=== PATIENT | female | born 2000 | race Caucasian/White ===

== ENCOUNTER → 2021-02-19 15:59 | Outpatient (CLI) | payer OTHER, SELFPAY ==
[2021-02-19 16:20] LABS: Absolute Lymphocyte Count 1.66 X10^3/uL (0.83-4.51); Absolute Neutrophil Count 8.1 X10^3/uL (2.0-7.7); Basophil# 0.03 X10^3/uL; Basophil% 0.3 % (0-1); Eosinophil# 0.04 X10^3/uL; Eosinophils% 0.4 % (0-5); Hematocrit 36.4 % (37-47); Hemoglobin 13.1 g/dL (12.0-15.0); Lymphocyte # 1.66 X10^3/ul (0.83-4.51); Lymphocyte % 15.8 % (19-41); Mean Corpuscular Hgb 31.3 pg (27.0-32.0); Mean Corpuscular Volume 86.9 fL (81-99); Mean Platelet Vol. 11.6 fl (6.2-12.0); Monocyte# 0.61 X10^3/uL; Monocyte% 5.8 % (0-10); NRBC Flagged by Analyzer 0 % (0-5); Neutrophil # 8.13 X10^3/uL (2.7-7.7); Neutrophil % 77.3 % (47-70); Platelet Count 232 K/mm3 (150-450); RBC Distribution Width CV 11.4 % (11.6-14.6); Red Blood Count 4.19 M/mm3 (4.2-5.4); White Blood Count 10.5 K/mm3 (4.4-11.0)
[2021-02-20 09:13] LABS: HIV - WCH Non-Reactive (Nonreactive); Hepatitis B Surface Antigen Non-Reactive (Nonreactive); Hepatitis C Antibody Non-Reactive (Nonreactive); Syphilis Antibodies Non-reactive
[2021-02-22 07:07] LABS: Chlamydia By Nucleic Acid AMP Negative (Negative)
[2021-02-22 13:41] LABS: Gonococcus By Nucleic Acid AMP Negative (Negative)
[2021-02-24 08:15] LABS: HPV Reflexed? NOT INDICATED
== END ==
PROVIDERS: Referring Provider Obstetrics & Gynecology; Visit Provider Obstetrics & Gynecology
DX: Z34.90 Encounter for supervision of normal pregnancy, unspecified, unspecified trimester (principal); Z12.4 Encounter for screening for malignant neoplasm of cervix
CPT/HCPCS: 36415; 85025; 86703; 86762; 86780; 86803; 86850; 86900; 86901; 87340; 87491; 87591; 88175; G0145

== ENCOUNTER 2021-04-18 09:30 | Outpatient (CLI) | payer OTHER, SELFPAY ==
[2021-04-18 09:54] LABS: Amphetamine Urine VISTA NEGATIVE (<1000 ng/mL); Barbiturate Urine VISTA NEGATIVE (< 200 ng/mL); Benzodiazepine Urine VISTA NEGATIVE (< 200 ng/mL); Cocaine Urine VISTA NEGATIVE (< 300 ng/mL); Ecstacy Urine VISTA NEGATIVE (< 500 ng/mL); Methadone Urine VISTA NEGATIVE (< 300 ng/mL); PCP Urine VISTA NEGATIVE (< 25 ng/mL); THC Urine VISTA NEGATIVE (< 50 ng/mL); Vista UDS pH Range 8
== END 2021-04-18 23:59 | disposition short-term general hospital (02) ==
LOC: LABSPEC 09:32
PROVIDERS: Referring Provider Nurse Practitioner Women's Health; Visit Provider Nurse Practitioner Women's Health
DX: Z34.01 Encounter for supervision of normal first pregnancy, first trimester (principal)
CPT/HCPCS: 80307; 87086

== ENCOUNTER 2021-07-11 07:38 | Outpatient (CLI) | payer OTHER, SELFPAY ==
[2021-07-11 08:05] LABS: Absolute Lymphocyte Count 1.19 X10^3/uL (0.83-4.51); Absolute Neutrophil Count 9.2 X10^3/uL (2.0-7.7); Basophil# 0.05 X10^3/uL; Basophil% 0.4 % (0-1); Eosinophil# 0.12 X10^3/uL; Eosinophils% 1.1 % (0-5); Lymphocyte # 1.19 X10^3/ul (0.83-4.51); Lymphocyte % 10.4 % (19-41); Mean Corp Hgb Conc 34.3 g/dL (32-36); Mean Corpuscular Hgb 32.3 pg (27.0-32.0); Mean Corpuscular Volume 94.1 fL (81-99); Mean Platelet Vol. 10.5 fl (6.2-12.0); Monocyte# 0.75 X10^3/uL; Monocyte% 6.6 % (0-10); NRBC Flagged by Analyzer 0 % (0-5); Neutrophil # 9.18 X10^3/uL (2.7-7.7); Neutrophil % 80.4 % (47-70); Platelet Count 225 K/mm3 (150-450); RBC Distribution Width CV 11.7 % (11.6-14.6); RBC Distribution Width SD 40.1 fl (35.1-43.9); Red Blood Count 3.72 M/mm3 (4.2-5.4); White Blood Count 11.4 K/mm3 (4.4-11.0)
[2021-07-11 08:31] LABS: Glucose Challenge Gest 1H 50g 113 mg/dL (70-140)
== END 2021-07-11 23:59 | disposition home or self-care (01) ==
PROVIDERS: Referring Provider Obstetrics & Gynecology; Visit Provider Obstetrics & Gynecology
DX: Z34.90 Encounter for supervision of normal pregnancy, unspecified, unspecified trimester (principal); Z3A.20 20 weeks gestation of pregnancy
CPT/HCPCS: 36415; 82950; 85025

== ENCOUNTER → 2021-09-04 | Outpatient (CLI) | payer OTHER, SELFPAY | END | disposition home or self-care (01) | LOC: LABSPEC 09-07 04:57 | PROVIDERS: Visit Provider Obstetrics & Gynecology | DX: Z34.01 Encounter for supervision of normal first pregnancy, first trimester (principal) | CPT/HCPCS: 87077; 87081; 87186 ==

== ENCOUNTER 2021-09-18 06:35 | Inpatient (IN) | payer OTHER, SELFPAY ==
[2021-09-18] VITALS (100 sets, daily range): BP systolic 106–163; BP diastolic 52–86; PULSE 72–151; TEMP 36.6–37.7; O2SAT 97–100; BMI 31.8
[2021-09-18] MEDS: Lactated Ringers 1,000 ML 999 ML IV ×2 (04:35→21:23)
[2021-09-18] MEDS: fentaNYL 100 MCG/2 ML Ampul 50 MCG IV (04:50)
--- NOTE | 2021-09-18 06:41 | HP.PCM.OB_ITS ---
HPI - General General Date of Admission: 09/18/21 HPI Narrative SARITA ENAMORADO, is a 21 F who presents IAL made cervical change. she also had 2 subtle late decels on the monitor no vb no lof good fm. Maternal Data Information AYAZ Calculator Estimated Delivery Date Method Current WG Current Estimate 10/01/21 LMP (Certain) 38w 1d PFSH PFSH Home Medications docosahexaenoic acid 200 mg capsule 1 mg PO DAILY 06/13/21 [History Last Taken Unknown] Allergy/AdvReac Type Severity Reaction Status Date / Time Penicillins Allergy Unknown Other Verified 09/04/21 08:57 Family History Grandmother Diabetes Heart disease Hypertension Grandfather Diabetes Heart disease Hypertension Lymphoma Social History household members: spouse housing: house current occupational status: employed current occupation: [employer] pets and animals: Yes Smoking Status: Never smoker second hand exposure: Yes alcohol intake: current alcohol intake frequency: holidays/special occasions only substance use type: does not use seatbelt use: always do you feel safe at home: Yes additional social history: - Emmanuel ([place]) History 1 Elective abortions Hx Para Spontaneous abortions Hx # Term Pregnancies Ectopic pregnancies Hx # Pregnancies Multiple births # of living children Visit Details Expected Delivery Route/Plan Labor Preferences- CB/BF classes: done labor support person: Emmanuel labor intervention preferences: none pain management options preferred: epidural cut cord/dad catch: maybe : yes PP control planned: discussed discussed possible routes of delivery and associated risks: discussed possible delivery modalities and possible indications for each including R/B/A of , VAVD, and CS. questions answered. special requests: Plans Covid status: counseled regarding risk of covid in vs vaccination and declined vaccination Flu vaccine: declined. Tdap vaccine: given Rhogam: na LARC form signed: yes movement and labor precautions reviewed. Problem list reviewed and updated with the most current plan of care details and appropriate orders placed. Relevant counseling for the gestational age provided. Continue routine care and follow up unless otherwise noted in visit not es/problem list details OB Flowsheet Initial Weight: 139 lb Date -?-?-?-?-?-?-?-?-?-?-?-?- EGA Weight BP Urine Prot -?-?-?-?-?-?-?-?-?-?-?-?- Glucose FHR FuHt Pres Dilation -?-?-?-?-?-?-?-?-?-?-?-?- Effaced St Visit Note 02/19/21 -?-?-?-?-?-?-?-?-?-?-?-?- 8w 0d 139 lb 4 oz (+4 oz) 124/80 -?--?-?-?-?-?-?-?-?-?-?-?- 155 -?-?-?-?-?-?-?-?-?-?-?-?- SM- no vb crampi ng SM- CRL cons with LMP 03/19/21 -?-?-?-?-?-?-?-?-?-?-?-?- 12w 0d 142 lb (+3 lb) 106/62 -?-?-?-?-?-?-?-?-?-?-?-?- 170 -?-?-?-?-?-?-?-?-?-?-?-?- SM- no vb crampi ng doing well 04/18/21 -?-?-?-?-?-?-?-?-?-?-?-?- 16w 2d 144 lb 6 oz (+5 lb 6 oz) 130/80 Negative -?-?-?-?-?-?-?-?-?-?-?-?- Negative 153 -?-?--?-?-?-?-?-?-?-?-?-?- MH-No VB, LOF. Nausea resolved. Anatomy US ordered. 05/16/21 -?-?-?-?-?-?-?-?-?-?-?-?- 20w 2d 149 lb 2 oz (+10 lb 2 oz) 120/80 Negative -?-?-?-?-?-?-?-?-?-?-?-?- Negative 145 -?-?-?-?-?-?-?-?-?-?-?-?- JV- no lof, vagi nal bleeding, + fm Anatomy scan done and report is pending. 06/13/21 -?-?-?-?-?-?-?-?-?-?-?-?- 24w 2d 159 lb (+20 lb) 122/70 Negative -?-?-?-?-?-?-?-?-?-?-?-?- Negative 145 -?-?-?-?-?-?-?-?-?-?-?-?- JV- nml anatomy, gct ordered. no complaints today 07/11/21 -?-?-?-?-?-?-?-?-?-?-?-?- 28w 2d 167 lb (+28 lb) 118/76 Negative -?-?-?-?-?-?-?-?-?-?-?-?- Negative 144 27 -?-?-?-?-?-?-?-?-?-?-?-?- MH-No VB, LOF. G ood FM. Normal 28wk labs today. Larc done. 07/25/21 -?-?-?-?-?-?-?-?-?-?-?-?- 30w 2d 173 lb (+34 lb) 120/82 Negative -?-?-?-?-?-?-?-?-?-?-?-?- Negative 145 30 -?-?-?-?-?-?-?-?-?-?-?-?- JV- no lof, vagi nal bleeding, or dec fm. no complaints. 08/08/21 -?-?-?-?-?-?-?-?-?-?-?-?- 32w 2d 176 lb 8 oz (+37 lb 8 oz) 120/80 Negative -?-?-?-?-?-?-?-?-?-?-?-?- Negative 137 32 -?-?-?-?-?-?-?-?-?-?-?-?- JV- no lof, vagi nal bleeding, or dec fm. tdap today. 08/20/21 -?-?-?-?-?-?-?-?-?-?-?-?- 34w 0d 181 lb (+42 lb) 122/86 Negative -?-?-?-?-?-?-?-?-?-?-?-?- Negative 130 34 -?-?-?-?-?-?-?-?-?-?-?-?- SM- no vb lof go od fm no regular ctx 09/04/21 -?-?-?-?-?-?-?-?-?-?-?-?- 36w 1d 187 lb (+48 lb) 114/82 Negative -?-?-?-?-?-?-?-?-?-?-?-?- Negative 140 36 Cephalic 0 -?-?-?-?-?-?-?-?-?-?-?-?- JV- bedside scan performed to confirm vtx. GBS collected. labor precautions discussed 09/14/21 -?-?-?-?-?-?-?-?-?-?-?-?- 37w 4d 188 lb (+49 lb) 120/66 Negative -?-?-?-?-?-?-?-?-?-?-?-?- Negative 150 36 Cephalic -?-?-?-?-?-?-?-?-?-?-?-?- JV-GBS pos, pt d eclines exam today. labor precautions discussed. 09/18/21 -?-?-?-?-?-?-?-?-?-?-?-?- 38w 1d 191 lb 3.2 oz (+52 lb 3.2 oz) 123/81 -?-?-?-?-?-?-?-?-?-?-?-?- -?-?-?-?-?-?-?-?-?-?-?-?- NST FHR Rate Baby A Baseline: 140 Variability:: Moderate Accelerations:: 15 x 15 Decelerations:: Late (two isolated) NST Reactive:: Yes FHR Category:: Category II Uterine Activity:: q3-5 ROS Constitutional Constitutional: Reports systems reviewed and no addt'l complaints, except as documented ENT HEENT: Reports systems reviewed and no addt'l complaints, except as documented Cardiovascular Cardiovascular: Reports systems reviewed and no addt'l complaints, except as documented Respiratory/Chest Respiratory/Chest: Reports systems reviewed and no addt'l complaints, except as documented Gastrointestinal Gastrointestinal: Reports systems reviewed and no addt'l complaints, except as documented and nausea; Denies abdominal pain Genitourinary Genitourinary: Reports systems reviewed and no addt'l complaints, except as documented, contractions Details: present and frequency (regular ) and movement Details: present Musculoskeletal Musculoskeletal: Reports systems reviewed and no addt'l complaints, except as documented Integumentary Integumentary: Reports as per HPI Neurologic Neurologic: Reports systems reviewed and no addt'l complaints, except as documented Endocrine Endocrinology: Reports systems reviewed and no addt'l complaints, except as documented Vital Signs Vital Signs Vital Signs: 09/18/21 03:32 09/18/21 03:37 09/18/21 03:38 Pulse Rate 104 H 109 H 103 H Blood Pressure 123/81 H BP Systolic 123 BP Diastolic 81 Pulse Ox 99 99 09/18/21 05:01 09/18/21 05:06 09/18/21 05:11 Pulse Rate 74 72 74 Blood Pressure BP Systolic BP Diastolic Pulse Ox 97 97 97 09/18/21 05:16 09/18/21 05:21 09/18/21 05:26 Pulse Rate 77 83 95 Blood Pressure BP Systolic BP Diastolic Pulse Ox 97 98 98 Weight Weight: 191 lb 3.2 oz Body Mass Index (BMI) 31.8 Physical Exam Const alert, oriented x3 and healthy appearing Constitutional Narrative: uncomfortable with contractions HEENT normocephalic and moist oral mucous membranes Head and Scalp: atraumatic Neck full ROM, no lymphadenopathy, supple and thyroid normal General: trachea midline Thyroid: thyroid normal Lymph Lymphatic: no lymphadenopathy noted Chest inspection of chest normal Resp normal respiratory effort Cardio regular rate GI normal to inspection, nondistended, normoactive bowel sounds, soft to palpation and non-tender Inspection: gravid external exam normal Bimanual Exam - Vag & Uterus: uterus non-tender Manual OB Exam: estimated gestational size appropriate, presentation cephalic, dilated, effaced and station Extremity normal to inspection General Extremity: Negative for edema Skin no rashes or lesions noted Neuro deep tendon reflexes 2+ bilaterally Motor Exam: strength 5/5 throughout and clonus absent Psych mental status grossly normal Labs Labs Labs: Blood Type A POSITIVE Antibody Screen NEGATIVE Hct 35.0 % (37-47) L Hgb 12.0 g/dL (12.0-15.0) Syphilis Total Ab Non-reactive Hep Bs Antigen Non-Reactive (Nonreactive) Chlamydia DNA (YANDEL) Negative (Negative) Neisseria gonorrhoeae DNA (YANDEL) Negative (Negative) HIV 1&2 Antibody Non-Reactive (Nonreactive) Glucose 1 Hr 50 gm 113 mg/dL (70-140) Assessment & Plan (1) GBS (group B Streptococcus carrier), +RV culture, currently : COMMENT: plan ancef in labor (2) : QUALIFIERS: Weeks of gestation: 37 weeks Qualified Code(s): Z3A.37 - 37 weeks gestation of COMMENT: declines genetic, ntd, and carrier screening. nl anatomy; (3) Supervision of normal : QUALIFIERS: Normal : normal first Trimester: first trimester Qualified Code(s): Z34.01 - Encounter for supervision of normal first , first trimester COMMENT: PRR AYAZ: 10/01/21 Girl (name secret) Spouse: Emmanuel. (4) Active labor at term: PLAN: Patient presents IAL, plan expectant management for , pitocin/AROM PRN if needed. Pain management: plans epidural. GBS positive plan IV ancef Management of any complications: none I have reviewed the [facility] and made any clinically relevant updates.
[2021-09-18] MEDS: LACTATED RINGERS 500 ML 999 ML IV (07:22)
[2021-09-18] MEDS: Cefazolin 2 GM in 0.9% Normal Saline 100 ML IV (07:34)
[2021-09-18 08:18] LABS: Absolute Neutrophil Count 11.7 X10^3/uL (2.0-7.7); Basophil# 0.07 X10^3/uL; Basophil% 0.5 % (0-1); Eosinophils% 0.7 % (0-5); Hematocrit 34.4 % (37-47); Hemoglobin 11.7 g/dL (12.0-15.0); Lymphocyte % 9.5 % (19-41); Mean Corpuscular Hgb 31.3 pg (27.0-32.0); Mean Platelet Vol. 10.9 fl (6.2-12.0); Monocyte# 1.04 X10^3/uL; NRBC Flagged by Analyzer 0 % (0-5); Neutrophil # 11.73 X10^3/uL (2.7-7.7); Neutrophil % 79.5 % (47-70); Platelet Count 251 K/mm3 (150-450); RBC Distribution Width CV 11.8 % (11.6-14.6); RBC Distribution Width SD 39.3 fl (35.1-43.9); Red Blood Count 3.74 M/mm3 (4.2-5.4); White Blood Count 14.8 K/mm3 (4.4-11.0)
[2021-09-18] MEDS: Lactated Ringers 1,000 ML 50 ML IV (08:24)
[2021-09-18] MEDS: fentaNYL-bupivacaine (epidural) 100 ML BAG EPIDURAL ×3 (10:23→18:56)
[2021-09-18] MEDS: Lactated Ringers 1,000 ML 200 ML IV (13:31)
[2021-09-18] MEDS: Cefazolin 1 GM/50 ML BAG IV (15:07)
[2021-09-18] MEDS: Oxytocin 30 units/NS 500 ml 30 UNITS/500 ML IV.SOLN IV (17:18)
[2021-09-18] MEDS: Ondansetron 4 MG/2 ML Vial IV (17:58)
[2021-09-18] MEDS: Oxytocin 30 units/NS 500 ml 30 UNITS/500 ML IV.SOLN 334 UNITS IV (19:37)
--- NOTE | 2021-09-18 20:09 | OP.PCM_ITS ---
Assessment & Plan (1) Supervision of normal : QUALIFIERS: Normal : normal first Trimester: first trimester Qualified Code(s): Z34.01 - Encounter for supervision of normal first , first trimester COMMENT: PRR AYAZ: 10/01/21 Girl (name secret) Spouse: Emmanuel. (2) : QUALIFIERS: Weeks of gestation: 37 weeks Qualified Code(s): Z3A.37 - 37 weeks gestation of COMMENT: declines genetic, ntd, and carrier screening. nl anatomy; (3) GBS (group B Streptococcus carrier), +RV culture, currently : COMMENT: plan ancef in labor (4) Active labor at term: (5) Vaginal delivery: COMMENT: SM 38 IAL girl [place] meconium Maternal Data Information AYAZ Calculator Estimated Delivery Date Method Current WG Current Estimate 10/01/21 LMP (Certain) 38w 1d Vaginal Delivery Operative Information Date of Procedure: 09/18/21 Pre-Operative Diagnosis: IAL Post-Operative Diagnosis: same Surgery / Procedure Performed: Spontaneous Vaginal Delivery Type of Anesthesia: Epidural Special Medications: none Estimated Blood Loss: 100 Fluids Replaced: crystalloid Findings Description of Procedure: Patient began pushing and delivered the head in the VIPUL presentation. The head was delivered atraumatically and a loose nuchal cord ?2 was identified and the delivered through without complication. The anterior and posterior shoulders delivered without complication followed by the rest of the infant and the was placed on the maternal abdomen. Delayed cord clamping was employed for approximately 60 seconds. Cord was clamped and cut and gentle traction was applied to the cord and the placenta delivered spontaneously immediately following it was noted to be intact with three-vessel cord. The perineum and vagina were inspected and noted to have no laceration. EBL was 100 cc. Patient and tolerated delivery well. Presentation: VIPUL Amniotic Membrane Rupture Type: Spontaneous Amniotic Fluid Description: Thick meconium Placental Delivery Description: Spontaneous Placenta Disposition: [facility] Cord Vessel Description: 3 Vessels Cord Entanglement: None Delayed Cord Clamping: Yes Post Vaginal Delivery Medications Given After Delivery: IV Pitocin Episiotomy Description: None Laceration: None Complication Complications: None Procedures Urinary/Genital [id number]: [id number] Vaginal Delivery [facility]
--- NOTE | 2021-09-18 20:14 | PCM.DC ---
Discharge Instructions Diet Discharge Diet: No restrictions Activity Discharge Activity: Return to Normal Activity, May Not Drive (while taking narcotic pain medications.) and May Shower May resume sexual activity in: 4-6 weeks Dressing / Incision Call your doctor if your incision/area has: Continuous Slow Oozing, Sudden Increased Bleeding, Increased Pain/ Swelling, Increased Redness and Foul Smelling Discharge Follow Up Care Please Follow Up With: Kathleen Castaneda MD When: Call [phone] to make an appointment with your doctor in 6 weeks. If you had elevated blood pressure or 4th degree laceration, you will need to be seen in 2 weeks. Test Results: Test results from this visit will be discussed in further detail at your follow-up appointment, if applicable. Discharge Plan Admission Admit Date/Time: 09/18/21 06:35 Attending Provider: Kathleen Castaneda Primary Care Provider: Cecile Cortes Discharge Orders/Prescriptions Prescriptions: No Action DHA 200 mg capsule 1 mg PO DAILY RF: 0 Referrals / Follow Up: Cecile Cortes PA [Primary Care Provider] - Disposition Disposition (needs filled in before D/C Order can be placed): Home, Self Care
[2021-09-19] VITALS (14 sets, daily range): BP systolic 99–120; BP diastolic 59–70; PULSE 84–162; RESP 14–18; TEMP 36.3–37.2; O2SAT 98–99
[2021-09-19] MEDS: Naproxen 500 MG Tablet PO ×2 (00:01→11:11)
[2021-09-19] MEDS: Acetaminophen 500 MG Tablet 1000 MG PO ×2 (06:54→16:26)
--- NOTE | 2021-09-19 07:18 | PN.OBGYN_ITS ---
Subjective Subjective Patient doing well without complaints. Tolerating PO. Ambulating and voiding without difficulty. feeding well. Denies chest pain, shortness of breath, calf pain/swelling, fevers, chills, lightheadedness. Objective Data Objective Data Vital Signs: Vital Signs Temp Pulse Resp BP Pulse Ox 98 F 94 18 111/62 99 09/19/21 03:45 09/19/21 03:48 09/19/21 03:45 09/19/21 03:48 09/19/21 00:04 Oxygen Delivery Method Room Air Weight: 191 lb 3.2 oz Body Mass Index (BMI) 31.8 Intake & Output: Intake and Output for Last 24 Hours 09/17/21 09/18/21 09/19/21 23:59 23:59 23:59 Intake Total 7267.8 / 7267.8 Output Total 3850 / 3850 1200 / 1200 Balance 3417.8 / 3417.8 -1200 / -1200 Lab / Micro Data Result Diagrams: 09/18/21 07:43 Labs: Laboratory Results - last 24 hr 09/18/21 04:35: Blood Type A POSITIVE, Antibody Screen NEGATIVE 09/18/21 07:43: WBC 14.8 H, RBC 3.74 L, Hgb 11.7 L, Hct 34.4 L, MCV 92.0, MCH 31.3, MCHC 34.0, RDW Std Deviation 39.3, RDW Coeff of Ashley 11.8, Plt Count 251, MPV 10.9, Immature Gran % (Auto) 2.800 H, Neut % (Auto) 79.5 H, Lymph % (Auto) 9.5 L, [place] % (Auto) 7.0, Eos % (Auto) 0.7, Baso % (Auto) 0.5, Absolute Neuts (auto) 11.7 H, Absolute Lymphs (auto) 1.40, Nucleated RBC % 0 Micro: Microbiology 09/18/21 07:15 Nasal Secretion SARS-CoV-2 Antigen (Rapid) - Final ROS Constitutional Constitutional: Reports systems reviewed and no addt'l complaints, except as documented Cardiovascular Cardiovascular: Reports systems reviewed and no addt'l complaints, except as documented Respiratory/Chest Respiratory/Chest: Reports systems reviewed and no addt'l complaints, except as documented Gastrointestinal Gastrointestinal: Reports systems reviewed and no addt'l complaints, except as documented Physical Exam Const alert, oriented x3 and no apparent distress HEENT Head and Scalp: atraumatic Resp normal respiratory effort GI soft to palpation and non-tender Bimanual Exam - Vag & Uterus: uterus non-tender Uterus Palpation: uterus fundus firm (below Umbilicus) Assessment & Plan (1) Vaginal delivery: COMMENT: SM 38 IAL girl Rodrigo meconium PLAN: Plan s/p PPD # 1 1. routine post delivery care 2. breast feeding- support given 3. rh positive 4. rubella immune
[2021-09-19] MEDS: Senna/Docusate Sodium 1 Tablet PO (19:50)
[2021-09-20 02:47] VITALS: BP 96/54; PULSE 86; RESP 18
[2021-09-20 02:48] VITALS: BP 92/54; PULSE 86
[2021-09-20 09:32] VITALS: BP 110/58; PULSE 100; PULSE 97; O2SAT 98
[2021-09-20 09:34] VITALS: BP 110/58; PULSE 100; RESP 16; TEMP 36.8; O2SAT 98
[2021-09-20] MEDS: Naproxen 500 MG Tablet PO (11:28)
[2021-09-20 13:00] VITALS: BP 98/63; PULSE 96; RESP 15; TEMP 36.2; O2SAT 99
--- NOTE | 2021-09-20 13:16 | PCM.PN.OB ---
Subjective Subjective Patient doing well without complaints. Tolerating PO. Ambulating and voiding without difficulty. feeding well. Denies chest pain, shortness of breath, calf pain/swelling, fevers, chills, lightheadedness. Objective Data Objective Data Vital Signs: Vital Signs Temp Pulse Resp BP Pulse Ox 97.1 F L 96 15 98/63 99 09/20/21 13:00 09/20/21 13:00 09/20/21 13:00 09/20/21 13:00 09/20/21 13:00 Oxygen Delivery Method Room Air Weight: 191 lb 3.2 oz Body Mass Index (BMI) 31.8 Intake & Output: Intake and Output for Last 24 Hours 09/18/21 09/19/21 09/20/21 23:59 23:59 23:59 Intake Total 7267.8 / 7267.8 Output Total 3850 / 3850 1200 / 1200 Balance 3417.8 / 3417.8 -1200 / -1200 Lab / Micro Data Result Diagrams: 09/18/21 07:43 Micro: Microbiology 09/18/21 07:15 Nasal Secretion SARS-CoV-2 Antigen (Rapid) - Final ROS Constitutional Constitutional: Reports systems reviewed and no addt'l complaints, except as documented Cardiovascular Cardiovascular: Reports systems reviewed and no addt'l complaints, except as documented Respiratory/Chest Respiratory/Chest: Reports systems reviewed and no addt'l complaints, except as documented Gastrointestinal Gastrointestinal: Reports systems reviewed and no addt'l complaints, except as documented Physical Exam Const alert, oriented x3 and no apparent distress HEENT Head and Scalp: atraumatic Resp normal respiratory effort GI soft to palpation and non-tender Bimanual Exam - Vag & Uterus: uterus non-tender Uterus Palpation: uterus fundus firm (below Umbilicus) Assessment & Plan (1) Vaginal delivery: COMMENT: SM 38 IAL girl Rodrigo meconium PLAN: Plan s/p PPD # 2 1. routine post delivery care 2. breast feeding- support given 3. rh positive 4. rubella immune
--- NOTE | 2021-09-20 16:03 | CASEMGMT ---
Social Work Brief Assessment Labor and Delivery Unit Patient Address: [address] [place] [address] [address] [place] [address] Phone number: [phone] Date of Referral: 09/18/2021 Time of Referral: 2311 Referred By: Dr. Bhakta Date of Intervention: 09/21/2019 Time of Intervention: 1344 Reason for Referral: Maternal anxiety Informant: Medical records, mother of baby (MOB) Madeline Pappas; father of baby (FOB) Emmanuel Pappas joined conversation midway through. History: JOHANNE is a 21-year-old female, to the FOB, with baby girl Rodrigo the first child for both parents. Rodrigo was born 09/18/2021, weighing 6 pounds 14 ounces, Apgars 8 and 9, 38 weeks gestation at . care started in the first trimester and regular thereafter. 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 FOB works as a account director. High school education, with no reported concerns regarding MOB's reading, writing, or learning comprehension. MOB reports sometimes will get anxious with new things, though has never needed medication or counseling. No reports of any thoughts of self-harm or harm to others. Denies any history of substance abuse issues. Drinks alcohol socially but not during . Drug screen on 04/18/2021 was negative. During private conversation, MOB denied any form of domestic or intimate partner violence. Assessment: Met with MOB in room, introducing to self and social work role. MOB initially alone and this fiction and nonfiction writer prose was able to address whether there are any topics of limits when the FOB returned. MOB denied. MOB also denied any domestic or intimate partner violence. FOB joined conversation midway through, and upon FOB's return to the room the FOB actively participated in conversation and provided input. MOB's overall demeanor was quiet and reserved, good eye contact, and answered questions appropriately; smiled at appropriate times. MOB and FOB reported to have necessary supplies to care for the infant and adequate support from family. FOB will be off of work for the remainder of this week and there will be family available to come and help out if needed after. No reported financial concerns, or ability to have basic needs met. MOB and FOB reports housing is adequate. MOB's brother has been living with the parents, but is signing paperwork today to get his own apartment. TORITO denies any safety concerns with her brother living in the home. Reviewed safe sleeping and shaken baby prevention, and both parents able to give appropriate responses. Reviewed mood and anxiety disorders, risk factors, and importance of seeking out help and support should symptoms arise. FOB was able to provide input on this topic, discussing that someone at work recently had a baby, and that person's had depression. FOB reported that the woman started medication, which helped. Additionally one other thing that helped this woman was being able to get out of the house and have other things to do then just focus on the baby. MOB acknowledged that she likes to have things to look forward to. MOB reports she would be open to counseling or medications should symptoms of depression or anxiety arise and become distressing. MOB and FOB accepted information on mood and anxiety disorders, including resources and supports. Information provided on help me grow, safe sleeping and shaken baby. Verbally educated to [facility] as a community resources support should nutrition become a concern. At this point MOB is breast-feeding and reports this is going pretty well. MOB and FOB deny any concerns with home-going. There have been no voiced concerns by nursing staff regarding parent or child interactions and bonding. Plan: MOB and infant will discharge home. Verbal education on mood and anxiety disorders, as well as a informational packet on what to look for and supports. No further needs requested or indicated. -HAYDEE Edwards, TIRE CHANGER *This note was generated with [employer] software. It may contain incorrect words, spelling, and punctuation that were not noted in review of the chart prior to signing*
== END 2021-09-20 14:00 | disposition home or self-care (01) | DRG 807 ==
LOC: WPOUT 06:38 → WP 06:38
PROVIDERS: Admitting Provider Obstetrics & Gynecology; Visit Provider Obstetrics & Gynecology
DX: O69.81X0 Labor and delivery complicated by cord around neck, without compression, not applicable or unspecified (principal); Z37.0 Single live birth; O76 Abnormality in fetal heart rate and rhythm complicating labor and delivery; O77.0 Labor and delivery complicated by meconium in amniotic fluid; Z3A.37 37 weeks gestation of pregnancy; O99.824 Streptococcus B carrier state complicating childbirth
CPT/HCPCS: 59025; 59050; 85025; 86850; 86900; 86901; 87426; 99218; J7120; G0378; J2405

== ENCOUNTER → 2022-07-22 | Outpatient (CLI) | payer OTHER, SELFPAY ==
[2022-07-22 12:31] LABS: Erythrocyte Sedimentation Rate 7 mm/hr (0-30)
[2022-07-22 12:32] LABS: Absolute Lymphocyte Count 1.46 X10^3/uL (0.83-4.51); Absolute Neutrophil Count 3.4 X10^3/uL (2.0-7.7); Basophil# 0.03 X10^3/uL; Basophil% 0.6 % (0-1); Eosinophil# 0.11 X10^3/uL; Hematocrit 41.9 % (37-47); Hemoglobin 14.2 g/dL (12.0-15.0); Lymphocyte # 1.46 X10^3/ul (0.83-4.51); Lymphocyte % 27.1 % (19-41); Mean Corp Hgb Conc 33.9 g/dL (32-36); Mean Corpuscular Hgb 30.6 pg (27.0-32.0); Mean Corpuscular Volume 90.3 fL (81-99); Mean Platelet Vol. 11.4 fl (6.2-12.0); Monocyte# 0.36 X10^3/uL; Monocyte% 6.7 % (0-10); NRBC Flagged by Analyzer 0 % (0-5); Neutrophil % 63.2 % (47-70); Platelet Count 276 K/mm3 (150-450); RBC Distribution Width CV 11.9 % (11.6-14.6); Red Blood Count 4.64 M/mm3 (4.2-5.4); White Blood Count 5.4 K/mm3 (4.4-11.0)
[2022-07-22 13:17] LABS: AST(SGOT) 14 U/L (15-37); Alanine Aminotransfer ALT/SGPT 21 U/L (13-56); Albumin, Serum 3.7 g/dL (3.2-5.0); Alkaline Phosphatase 62 U/L (45-117); Anion Gap 4 (5-15); BUN 13 mg/dL (7-18); BUN/Creat Ratio 17.7 RATIO (10-20); CRP < 2.90 mg/L (0.0-3.0); Calcium,Total 9.2 mg/dL (8.5-10.1); Chloride 107 mmol/L (98-107); Creatinine, Serum 0.74 mg/dL (0.55-1.02); EST Glomerular Filtration Rate 104 mL/min (>60); Est Glom Filt Rate - Afr Amer 126 mL/min (>60); Globulin 3.6 g/dL (2.2-4.2); Glucose 86 mg/dL (74-106); Potassium 3.8 mmol/L (3.5-5.1); Protein, Total 7.3 g/dL (6.4-8.2); Sodium Level 138 mmol/L (136-145)
[2022-07-23 12:09] LABS: Anti-Centromere B Ab <0.2 AI (0.0-0.9); Anti-Chromatin <0.2 AI (0.0-0.9); Anti-Jo <0.2 AI (0.0-0.9); Anti-Scleroderma-70 AB <0.2 AI (0.0-0.9); RNP Ab <0.2 AI (0.0-0.9); SJOGREN'S Anti-SS-A test < 0.2 AI (0.0-0.9); SJOGREN'S Anti-SS-B test < 0.2 AI (0.0-0.9); Smith Ab <0.2 AI (0.0-0.9)
[2022-07-23 14:17] LABS: Anti-dsDNA Ab <1 IU/mL (0-9)
[2022-07-23 15:08] LABS: Endomysial Antibody IgA Negative (Negative); Immunoglobulin A 193 mg/dL (87-352); t-Transglutaminase IgA <2 U/mL (0-3)
[2022-07-26 08:25] LABS: Cytoplasmic Ab (C-ANCA) <1:20 titer (Neg:<1:20); Immunoglobulin A 183 mg/dL (87-352); Immunoglobulin E 50 IU/mL (6-495); Immunoglobulin G 1194 mg/dL (586-1602); Immunoglobulin M 64 mg/dL (26-217); Perinuclear Ab (P-ANCA) <1:20 titer (Neg:<1:20)
== END | disposition home or self-care (01) ==
PROVIDERS: Referring Provider Nurse Practitioner Adult Health; Visit Provider Nurse Practitioner Adult Health
DX: K52.9 Noninfective gastroenteritis and colitis, unspecified (principal); R10.9 Unspecified abdominal pain
CPT/HCPCS: 36415; 80053; 82784; 82785; 83516; 85025; 85652; 86140; 86225; 86235; 86255; 86256

== ENCOUNTER → 2022-07-24 | Outpatient (CLI) | payer OTHER, SELFPAY ==
--- NOTE | 2022-07-24 07:26 | US_ITS ---
EXAM: US ABDOMEN LIMITED, RIGHT UPPER QUADRANT CLINICAL INDICATION: postprandial diarrhea, abd pain TECHNIQUE: Real-time ultrasound of the right upper quadrant with image documentation. This report was created using [employer] report generation technology. COMPARISON: None. FINDINGS: LIVER: Normal. There is normal echotexture. No focal hepatic lesion. No intrahepatic biliary ductal dilation. GALLBLADDER: Normal. No shadowing gallstone. No gallbladder wall thickening is demonstrated. No pericholecystic fluid. Negative sonographic Mckeon''s sign. COMMON BILE DUCT: Unremarkable as visualized. The proximal common bile duct is within normal limits for the patient''s age. PANCREAS: Unremarkable as visualized. No focal abnormality is demonstrated in the pancreas. No pancreatic ductal dilatation. RIGHT KIDNEY: Normal. There is no hydronephrosis. No shadowing calculus. No focal lesion or perinephric collection is demonstrated. US/Abdomen Limited IMPRESSION: Normal right upper quadrant ultrasound. Electronically Signed: Neftali Martin MD at 16:54 EDT ,
[2022-07-29 00:07] LABS: Calprotectin, Stool 23 ug/g (0-120)
== END | disposition home or self-care (01) ==
PROVIDERS: Referring Provider Nurse Practitioner Adult Health; Visit Provider Nurse Practitioner Adult Health
DX: K52.9 Noninfective gastroenteritis and colitis, unspecified (principal); R10.9 Unspecified abdominal pain
CPT/HCPCS: 76705; 83630; 83993

== ENCOUNTER → 2023-10-21 | Outpatient (CLI) | payer OTHER, SELFPAY ==
[2023-10-21 10:13] LABS: Absolute Lymphocyte Count 1.36 X10^3/uL (0.83-4.51); Absolute Neutrophil Count 5.5 X10^3/uL (2.0-7.7); Basophil# 0.03 X10^3/uL; Basophil% 0.4 % (0-1); Eosinophil# 0.06 X10^3/uL; Eosinophils% 0.8 % (0-5); Hemoglobin 13.2 g/dL (12.0-15.0); Lymphocyte # 1.36 X10^3/ul (0.83-4.51); Lymphocyte % 18.2 % (19-41); Mean Corp Hgb Conc 34.7 g/dL (32-36); Mean Corpuscular Hgb 30.3 pg (27.0-32.0); Mean Corpuscular Volume 87.4 fL (81-99); Mean Platelet Vol. 10.7 fl (6.2-12.0); Monocyte# 0.48 X10^3/uL; Monocyte% 6.4 % (0-10); NRBC Flagged by Analyzer 0 % (0-5); Neutrophil # 5.52 X10^3/uL (2.7-7.7); Neutrophil % 73.8 % (47-70); Platelet Count 246 K/mm3 (150-450); RBC Distribution Width CV 11.3 % (11.6-14.6); RBC Distribution Width SD 36.5 fl (35.1-43.9); Red Blood Count 4.35 M/mm3 (4.2-5.4); White Blood Count 7.5 K/mm3 (4.4-11.0)
[2023-10-21 11:33] LABS: HIV - WCH Non-Reactive (Nonreactive); Hepatitis B Surface Antigen Non-Reactive (Nonreactive); Hepatitis C Antibody Non-Reactive (Nonreactive); Rubella IgG Reactive (Nonreactive); Syphilis Antibodies Non-reactive
[2023-10-24 07:08] LABS: Chlamydia By Nucleic Acid AMP Negative (Negative); Gonococcus By Nucleic Acid AMP Negative (Negative)
[2023-10-24 19:40] LABS: HPV Reflexed? NOT INDICATED
== END | disposition home or self-care (01) ==
PROVIDERS: Referring Provider Advanced Practice Midwife; Visit Provider Advanced Practice Midwife
DX: O09.90 Supervision of high risk pregnancy, unspecified, unspecified trimester (principal); Z3A.00 Weeks of gestation of pregnancy not specified
CPT/HCPCS: 36415; 85025; 86703; 86762; 86780; 86803; 86850; 86900; 86901; 87086; 87340; 87491; 87591; 88175; G0145

== ENCOUNTER → 2024-02-25 | Outpatient (CLI) | payer OTHER, SELFPAY ==
[2024-02-25 15:19] LABS: Absolute Lymphocyte Count 1.11 X10^3/uL (0.83-4.51); Basophil# 0.03 X10^3/uL; Basophil% 0.3 % (0-1); Eosinophil# 0.08 X10^3/uL; Eosinophils% 0.7 % (0-5); Hematocrit 33.7 % (37-47); Hemoglobin 11.3 g/dL (12.0-15.0); Lymphocyte # 1.11 X10^3/ul (0.83-4.51); Mean Corp Hgb Conc 33.5 g/dL (32-36); Mean Corpuscular Hgb 31.1 pg (27.0-32.0); Mean Corpuscular Volume 92.8 fL (81-99); Mean Platelet Vol. 10.3 fl (6.2-12.0); Monocyte% 6.3 % (0-10); NRBC Flagged by Analyzer 0 % (0-5); Neutrophil # 8.98 X10^3/uL (2.7-7.7); Neutrophil % 81.2 % (47-70); Platelet Count 251 K/mm3 (150-450); RBC Distribution Width SD 41.1 fl (35.1-43.9); Red Blood Count 3.63 M/mm3 (4.2-5.4); White Blood Count 11.1 K/mm3 (4.4-11.0)
[2024-02-25 15:25] LABS: Glucose Challenge Gest 1H 50g 105 mg/dL (70-140)
[2024-02-25 16:01] LABS: HIV - WCH Non-Reactive (Nonreactive); Syphilis Antibodies Non-reactive
== END | disposition home or self-care (01) ==
LOC: BWCLAB 14:13
PROVIDERS: Referring Provider Registered Nurse; Visit Provider Registered Nurse
DX: Z34.00 Encounter for supervision of normal first pregnancy, unspecified trimester (principal); Z3A.22 22 weeks gestation of pregnancy; Z13.1 Encounter for screening for diabetes mellitus
CPT/HCPCS: 36415; 82950; 85025; 86703; 86780; 86850; 86900; 86901

== ENCOUNTER → 2024-04-28 | Outpatient (CLI) | payer OTHER, SELFPAY | END | disposition home or self-care (01) | LOC: LABSPEC 10:33 | PROVIDERS: Referring Provider Advanced Practice Midwife; Visit Provider Advanced Practice Midwife | DX: O09.93 Supervision of high risk pregnancy, unspecified, third trimester (principal); Z3A.00 Weeks of gestation of pregnancy not specified | CPT/HCPCS: 87081 ==

== ENCOUNTER 2024-05-14 16:42 | Inpatient (IN) | payer OTHER, SELFPAY ==
[2024-05-14] VITALS (28 sets, daily range): BP systolic 103–133; BP diastolic 58–87; PULSE 84–112; RESP 16–18; TEMP 36.5–37.3; O2SAT 82–100; BMI 31.8
[2024-05-14] MEDS: Lactated Ringers 1,000 ML 50 ML IV (16:50)
[2024-05-14] MEDS: Lactated Ringers 1,000 ML 999 ML IV (16:50)
--- NOTE | 2024-05-14 16:50 | HP.PCM.OB_ITS ---
HPI - General General Date of Admission: 05/14/24 HPI Narrative SARITA ENAMORADO, is a 23 y/o @ 39 weeks 0 days who presents to L&D with leaking fluid. She is jair mildly and wants an epidural eventually. Maternal Data Information AYAZ Calculator Estimated Delivery Date Method Current WG Current Estimate 05/21/24 LMP (Certain) 39w 0d PFSH PFSH Medical History Dysmenorrhea Abdominal pain Postprandial diarrhea Abdominal cramping Alternating constipation and diarrhea IBS (irritable bowel syndrome) Vaginal delivery Home Medications ?Medication ?Instructions ?Recorded ?Last Taken ?Type PNV 153-FA 400 mcg-om3 35 mg-dha tab PO 10/0505/13/24 16:00 History 25 mg-epa 5 mg-fish oil chew tablet Allergy/AdvReac Type Severity Reaction Status Date / Time Penicillins Allergy Unknown Other Verified 05/14/24 16:44 Family History Grandmother Diabetes Heart disease Hypertension Grandfather Diabetes Heart disease Hypertension Lymphoma Surgical History No pertinent past surgical history Social History adopted: No household members: spouse and children housing: house number of children: 1 current occupational status: employed current occupation: [employer] pets and animals: Yes pets and animals: dog(s) history of recent travel: Yes ([place] in june) out of state: Yes out of country: No sexually active: Yes Smoking Status: Never smoker second hand exposure: Yes alcohol intake: current alcohol intake frequency: holidays/special occasions only details: Not while substance use type: does not use well-balanced diet: about half the time caffeine: No eating out: rarely or never during the past year weight has: remained stable what type of physical activity do you participate in: none edwin/mandaen: Restorationist seatbelt use: always do you feel safe at home: Yes additional social history: - Emmanuel (Medical Chemist) History 2 Elective abortions Hx Para 1 Spontaneous abortions Hx # Term Pregnancies Ectopic pregnancies Hx # Pregnancies Multiple births # of living children 1 Past Pregnancies Del. Date Name GA/Weeks Outcome Route Bth Weight Gen Labor Lgth Anesthesia Del Locatn Provider FOB 09/18/21 Rodrigo 38 live - full term 6#14oz Female ep idural [facility] Kathleen Benitez Delivery Date: 09/18/21 Last Updated by: Ivonne Escobar see problem list for complications, and IAL 38 SM girl Rodrigo. Visit Details Expected Delivery Route/Plan Labor Preferences- CB/BF classes: no labor support person: Emmanuel labor intervention preferences: [] pain management options preferred: epidural cut cord/dad catch: yes : yes PP control planned: discussed discussed possible routes of delivery and associated risks: [] special requests: [] Plans Covid status: [] Flu vaccine: no Tdap vaccine: declines Rhogam: NA LARC form signed: yes movement and labor precautions reviewed. Problem list reviewed and updated with the most current plan of care details and appropriate orders placed. Relevant counseling for the gestational age provided. Continue routine care and follow up unless otherwise noted in visit notes/problem list details OB Flowsheet Initial Weight: 151 lb Date -?-?-?-?-?-?-?-?-?-?-?-?- EGA Weight BP Urine Prot -?-?-?-?-?-?-?-?-?-?-?-?- Glucose FHR FuHt Pres Dilation -?-?-?-?-?-?-?-?-?-?-?-?- Effaced St Visit Note 10/21/23 -?-?-?-?-?-?-?-?-?-?-?-?- 9w 4d 151 lb 6 oz (+6 oz) 103/70 -?-?-?-?-?-?-?-?-?-?-?-?- 180 -?-?-?-?-?-?-?-?-?-?-?-?- KW CRL cons with dates. 26mm. declines NIPT at this time. 11/19/23 -?-?-?-?-?-?-?-?-?-?-?-?- 13w 5d 151 lb 6 oz (+6 oz) 113/73 Negative -?-?-?-?-?-?-?-?-?-?-?-?- Negative 150 -?-?-?-?-?-?-?-?--?-?-?-?- JV- no cramping or spotting. C/o headaches. has tried hydration + fluids. will try magnesium . 12/16/23 -?-?-?-?-?-?-?-?-?-?-?-?- 17w 4d 152 lb 8 oz (+1 lb 8 oz) 104/70 Negative -?-?-?-?-?-?-?-?-?-?-?-?- Negative 142 -?-?-?-?-?-?-?-?-?-?-?-?- KW- no vb/crampi ng. US ordered. wants to discuss afp with . headaches better on magnesium. 01/16/24 -?-?-?-?-?-?-?-?-?-?-?-?- 22w 0d 159 lb 4 oz (+8 lb 4 oz) 112/76 Negative -?-?-?-?-?-?-?-?-?-?-?-?- Negative 150 22 -?-?-?-?-?-?-?-?-?-?-?-?- LC- no vb/crampi ng. anatomy with previa- repeat at 28 weeks. 28 week labs ordered. no concerns. 02/25/24 -?-?-?-?-?-?-?-?-?-?-?-?- 27w 5d 172 lb (+21 lb) 107/74 -?-?-?-?-?-?-?-?-?-?-?-?- 140 29 -?-?-?-?-?-?-?-?-?-?-?-?- SM- no vb lof go od fm no regualr ctx 03/23/24 -?-?-?-?-?-?-?-?-?-?-?-?- 31w 4d 178 lb 6 oz (+27 lb 6 oz) 121/82 Negative -?-?-?-?-?-?-?-?-?-?-?-?- Negative 141 31 -?-?-?-?-?-?-?-?-?-?-?-?- MH-No VB, LOF. G ood FM. Declines tdap. Larc done 04/06/24 -?-?-?-?-?-?-?-?-?-?-?-?- 33w 4d 182 lb 4 oz (+31 lb 4 oz) 104/64 Negative -?-?-?-?-?-?-?-?-?-?-?-?- Negative 135 34 -?-?-?--?-?-?-?-?-?-?-?-?- KW- no vb/lof/ct x. good fm. no concerns today 04/22/24 -?-?-?-?-?-?-?-?-?-?-?-?- 35w 6d 188 lb (+37 lb) 108/73 Negative -?-?-?-?-?-?-?-?-?-?-?-?- Negative 135 35 Cephalic -?-?-?-?-?-?-?-?-?-?-?-?- SM- no vb lof go od fm no reuglar ctx 04/28/24 -?-?-?-?-?-?-?-?--?-?-?-?- 36w 5d 190 lb 4 oz (+39 lb 4 oz) 123/82 Negative -?-?-?-?-?-?-?-?-?-?-?-?- Negative 130 37 Cephalic 1 -?-?-?-?-?-?--?-?-?-?-?-?- 50 KW- no v b/lof/ctx. good fm. GBS today. 05/06/24 -?-?-?-?-?-?-?-?-?-?-?-?- 37w 6d 187 lb 6 oz (+36 lb 6 oz) 117/79 Negative -?-?-?-?-?-?-?-?-?-?-?-?- Negative 135 38 Cephalic 1 -?-?-?-?-?-?-?-?-?-?-?-?- SM- no vb lof go od fm no regualr ctx 05/14/24 -?--?-?-?-?-?-?-?-?-?-?-?- 39w 0d 193 lb 2 oz (+42 lb 2 oz) 120/84 Negative -?-?-?-?-?-?-?-?-?-?-?-?- Negative 125 40 Cephalic 3 -?-?-?-?-?-?-?-?-?-?-?-?- 70 -3 KW- no vb/ lof/reg ctx. good fm. ROS Constitutional Constitutional: Denies change in weight, fatigue, fever(s), headache(s), poor appetite or weakness Eyes Eyes: Denies blurry vision, change in vision, seeing flashes or spots in vision ENT HEENT: Denies dizziness, headache(s), loss taste/smell or sore throat Cardiovascular Cardiovascular: Denies chest pain, dizziness, dyspnea, irregular heart rhythm, leg edema, palpitations, rapid heart rate or vomiting Respiratory/Chest Respiratory/Chest: Denies chest tightness, cough, dyspnea or breast pain Gastrointestinal Gastrointestinal: Denies abdominal pain, anorexia, constipation, cramping, diarrhea, hemorrhoids, vomiting or weight changes Genitourinary Genitourinary: Denies dysuria, flank pain, genital lesions, genital pain, urinary frequency or urinary urgency Musculoskeletal Musculoskeletal: Denies back pain, difficulty walking, joint pain, limited range of motion, muscle cramps or numbness Integumentary Integumentary: Denies lesions or unusual bruising Neurologic Neurologic: Denies abnormal movements, abnormal speech, dizziness, numbness, seizure-like activity or syncope Psychiatric Psychiatric: Denies anxiety, behavioral changes, change in appetite, change in libido, cognitive impairment, confusion, depression, difficulty concentrating, hallucinations or suicidal thoughts Endocrine Endocrinology: Denies excessive sweating, polydipsia or polyuria Hematologic/Lymphatic Hematologic/Lymphatic: Denies easy bleeding, easy bruising or lymphadenopathy Allergic/Immunologic Allergic/Immunologic: Denies itchy eyes, lip swelling, seasonal rhinorrhea, rhinitis, throat swelling, tongue swelling, eczemia, wheezing or asthma Vital Signs Vital Signs Vital Signs: 05/14/24 16:36 05/14/24 16:36 05/14/24 16:36 Temperature 98.9 F Temperature Source Temporal Pulse Rate Respiratory Rate 18 Blood Pressure BP Systolic BP Diastolic Pulse Ox 05/14/24 16:40 05/14/24 16:40 05/14/24 16:40 Temperature Temperature Source Pulse Rate 95 Respiratory Rate Blood Pressure 118/78 BP Systolic 118 BP Diastolic 78 Pulse Ox 99 Weight Weight: 191 lb Body Mass Index (BMI) 31.8 Physical Exam Const alert, oriented x3, no apparent distress and healthy appearing General Appearance: cooperative; Negative for anxious HEENT normocephalic Face and Sinus: normal facial exam Eyes EOMs intact bilaterally and no scleral icterus General Eye: normal appearance of both eyes Neck full ROM and supple Lymph Lymphatic: no lymphadenopathy noted Chest Chest: abnormal inspection of the chest Resp normal respiratory effort Effort and Inspection: able to speak in complete sentences Cardio regular rate GI soft to palpation and non-tender Inspection: gravid Palpation: soft; Negative for tender external exam normal Amniotic Fluid: ROM+plus Back/Spine no CVA tenderness Extremity normal to inspection, full ROM and no clubbing, cyanosis or edema General Extremity: Negative for calf tenderness or edema Skin Lesions: no lesions Rashes: no rashes Psych mental status grossly normal Labs Labs Labs: Blood Type A POSITIVE Antibody Screen NEGATIVE Hct 33.7 % (37-47) L Hgb 11.3 g/dL (12.0-15.0) L Syphilis Total Ab Non-reactive Rubella IgG Antibody Reactive (Nonreactive) Hep Bs Antigen Non-Reactive (Nonreactive) Hepatitis C Antibody Non-Reactive (Nonreactive) Chlamydia DNA (YANDEL) Negative (Negative) N.gonorrhoeae DNA (YANDEL) Negative (Negative) HIV 1&2 Antibody Non-Reactive (Nonreactive) Glucose 1 Hr 50 gm 105 mg/dL (70-140) Rhogam given: No Miscellaneous Test Assessment & Plan (1) Supervision of high-risk : QUALIFIERS: Trimester: third trimester Qualified Code(s): O09.93 - Supervision of high risk , unspecified, third trimester COMMENT: PRR, , AYAZ 05/21/24, girl Jamey Wallace, Emmanuel (2) : QUALIFIERS: Weeks of gestation: 39 weeks Qualified Code(s): Z3A.39 - 39 weeks gestation of COMMENT: GBS neg, declines NIPT carrier and afp screen, nl anatomy, nl GCT (3) SROM (spontaneous rupture of membranes): PLAN: Plan Patient presents IAL, plan expectant management for , pitocin PRN. Pain management: plans epidural. GBS negative . Management of any complications: none I have reviewed the [facility] and made any clinically relevant updates.
[2024-05-14 17:21] LABS: Absolute Lymphocyte Count 1.37 X10^3/uL (0.83-4.51); Absolute Neutrophil Count 10.4 X10^3/uL (2.0-7.7); Basophil# 0.07 X10^3/uL; Basophil% 0.5 % (0-1); Eosinophil# 0.09 X10^3/uL; Eosinophils% 0.7 % (0-5); Hematocrit 33.6 % (37-47); Hemoglobin 11.1 g/dL (12.0-15.0); Lymphocyte # 1.37 X10^3/ul (0.83-4.51); Lymphocyte % 10.3 % (19-41); Mean Corpuscular Hgb 29.4 pg (27.0-32.0); Mean Corpuscular Volume 88.9 fL (81-99); Monocyte# 0.92 X10^3/uL; Monocyte% 6.9 % (0-10); NRBC Flagged by Analyzer 0 % (0-5); Neutrophil % 78.7 % (47-70); Platelet Count 285 K/mm3 (150-450); RBC Distribution Width CV 12.7 % (11.6-14.6); RBC Distribution Width SD 41.3 fl (35.1-43.9); Red Blood Count 3.78 M/mm3 (4.2-5.4); White Blood Count 13.2 K/mm3 (4.4-11.0)
[2024-05-14 17:57] LABS: Syphilis Antibodies Non-reactive
[2024-05-14] MEDS: fentaNYL-bupivacaine (epidural) 100 ML BAG EPIDURAL ×2 (18:43→22:51)
[2024-05-14] MEDS: Oxytocin 15 Units/NS 250ml 15 UNITS/250 ML IV.SOLN 2 UNITS IV (22:25)
[2024-05-15] VITALS (35 sets, daily range): BP systolic 99–117; BP diastolic 58–82; PULSE 67–110; RESP 14–16; TEMP 35.8–37.6; O2SAT 97–100
--- NOTE | 2024-05-15 00:19 | EX.PCM.OBVAG ---
Assessment & Plan (1) SROM (spontaneous rupture of membranes): (2) Supervision of high-risk : QUALIFIERS: Trimester: third trimester Qualified Code(s): O09.93 - Supervision of high risk , unspecified, third trimester COMMENT: PRR, , AYAZ 05/21/24, girl Jamey Wallace, Emmanuel (3) : QUALIFIERS: Weeks of gestation: 39 weeks Qualified Code(s): Z3A.39 - 39 weeks gestation of COMMENT: GBS neg, declines NIPT carrier and afp screen, nl anatomy, nl GCT Maternal Data Information AYAZ Calculator Estimated Delivery Date Method Current WG Current Estimate 05/21/24 LMP (Certain) 39w 1d Final AYAZ: 05/21/24 Final AYAZ Source: LMP Gestational age: 39 weeks 1 day Vaginal Delivery Maternal Presentation Maternal Presentation: Active Labor and Spontaneous Rupture of Membranes Type of Induction: Pitocin Vaginal Delivery Information Procedure Performed: Spontaneous Vaginal Delivery Surgeon/Practitioner: Tarah Moran Date of Procedure: 05/15/24 Pre-Procedure Diagnosis: SROM @ 39 weeks Post-Procedure Diagnosis: SROM @ 39 weeks Type of anesthesia: Epidural Estimated Blood Loss: 100cc Time of Delivery: 00:09 Findings Description of procedure: Patient began pushing and delivered the head in the VIPUL presentation. The head was delivered atraumatically. The anterior and posterior shoulders delivered without complication followed by the rest of the infant and the was placed on the maternal abdomen. Delayed cord clamping was employed for approximately 60 seconds. Cord was clamped and cut and gentle traction was applied to the cord and the placenta delivered spontaneously immediately following it was noted to be intact with three-vessel cord. The perineum and vagina were inspected and noted to have no laceration. EBL was 100 cc. Patient and tolerated delivery well. Procedure findings: viable female infant Jamey apgars 8/9 Presentation: Vertex Amniotic Membrane Rupture Type: Spontaneous Amniotic Fluid Description: Clear Placental Delivery Description: Spontaneous Placenta Disposition: [facility] Specimen collected: No Cord Vessel Description: 3 Vessels Cord Entanglement: None Infant A Gender: Female (1 minute): 8 (5 minute): 9 Delayed Cord Clamping: Yes Canvas Baster Jumpbasting background check coordinator: No Post Vaginal Deli Medications given after delivery: IV Pitocin Episiotomy Description: None Laceration: None Complication Complications: No Procedures Urinary/Genital [id number]: [id number] Vaginal Delivery [facility]
--- NOTE | 2024-05-15 00:22 | DCINST_ITS ---
Discharge Instructions Diet Discharge Diet: No restrictions DC O2, CPAP, BIPAP needs Home O2 Discharge instructions: No Dressing / Incision Discharge Activity: Return to Normal Activity, May Not Drive (while taking narcotic pain medications.) and May Shower May resume sexual activity in: 4-6 weeks Dressing / Incision Call your doctor if your incision/area has: Continuous Slow Oozing, Sudden Increased Bleeding, Increased Pain/ Swelling, Increased Redness and Foul Smelling Discharge Follow Up Care Please Follow Up With: Tarah Moran DO When: Call [phone] to make an appointment with your doctor in 6 weeks. If you had elevated blood pressure or 4th degree laceration, you will need to be seen in 2 weeks. Test Results: Test results from this visit will be discussed in further detail at your follow- up appointment, if applicable. Discharge Plan Admission Admit Date/Time: 05/14/24 16:42 Attending Provider: Tarah Moran Primary Care Provider: Cecile Cortes Discharge Orders/Prescriptions Prescriptions: No Action PNV no.[id number] 400 mcg-35 mg- 25 mg-5 mg tablet,chewable 1 tab PO DAILY Referrals / Follow Up: Cecile Cortes PA [Primary Care Provider] -
[2024-05-15] MEDS: Oxytocin 15 Units/NS 250ml 15 UNITS/250 ML IV.SOLN 83 UNITS IV (00:50)
[2024-05-15] MEDS: Ibuprofen 600 MG Tablet PO ×3 (07:07→20:12)
[2024-05-15] MEDS: Acetaminophen 500 MG Tablet 1000 MG PO ×2 (10:45→16:59)
[2024-05-16] MEDS: Acetaminophen 500 MG Tablet 1000 MG PO (00:40)
[2024-05-16 01:19] VITALS: BP 107/64; PULSE 86; RESP 16; TEMP 36.4; O2SAT 98
[2024-05-16 08:30] VITALS: BP 102/68; PULSE 82; RESP 16; TEMP 36.1
[2024-05-16] MEDS: Ibuprofen 600 MG Tablet PO (08:50)
--- NOTE | 2024-05-16 10:14 | PN.OBGYN_ITS ---
Subjective Subjective Patient doing well without complaints. Tolerating PO. Ambulating and voiding without difficulty. Feeding well. Denies chest pain, shortness of breath, calf pain/swelling, fevers, chills, lightheadedness. Objective Data Objective Data Vital Signs: Vital Signs Temp Pulse Resp BP Pulse Ox O2 Del Method 97 F L 82 16 102/68 98 Room Air 05/16/24 08:30 05/16/24 08:30 05/16/24 08:30 05/16/24 08:30 05/16/24 01:19 05/16/24 01:19 Oxygen Delivery Method Room Air Weight: 191 lb Body Mass Index (BMI) 31.8 Intake & Output: Intake and Output for Last 24 Hours 05/14/24 05/15/24 05/16/24 23:59 23:59 23:59 Intake Total 1044.18 / 1044.18 1419.33 / 1419.33 Output Total 500 / 500 1400 / 1400 Balance 544.18 / 544.18 19.33 / 19.33 Lab / Micro Data 05/14/24 16:50 ROS Constitutional Constitutional: Denies chills, fatigue, fever(s), poor appetite or weakness Eyes Eyes: Denies blurry vision, change in vision, seeing flashes or spots in vision ENT HEENT: Denies dizziness, headache(s), loss taste/smell or sore throat Cardiovascular Cardiovascular: Denies chest pain, dizziness, dyspnea, irregular heart rhythm, palpitations or rapid heart rate Respiratory/Chest Respiratory/Chest: Denies chest tightness, cough, dyspnea or breast pain Gastrointestinal Gastrointestinal: Denies abdominal pain, constipation or vomiting Genitourinary Genitourinary: Denies dysuria or flank pain Musculoskeletal Musculoskeletal: Denies difficulty walking, joint pain, limited range of motion or numbness Neurologic Neurologic: Denies abnormal movements, abnormal speech, dizziness, numbness, seizure-like activity or syncope Psychiatric Psychiatric: Denies anxiety, behavioral changes, change in appetite, confusion, depression or suicidal thoughts Physical Exam Const alert, oriented x3 and no apparent distress General Appearance: cooperative and comfortable Resp normal respiratory effort Cardio regular rate GI normal to inspection, nondistended, normoactive bowel sounds GI Narrative: uterus is firm below umbilicus Palpation: soft Back/Spine no CVA tenderness and thoraco-lumbar ROM normal Extremity normal to inspection, no clubbing, cyanosis or edema, no calf tenderness and no pedal edema Psych mental status grossly normal, thought process normal, cooperative, affect normal, speech normal, activity/motor behavior normal, denies homicidal ideation and denies suicidal ideation Assessment & Plan (1) Vaginal delivery: COMMENT: TAYLOR 05/15/24 (2) SROM (spontaneous rupture of membranes): (3) Supervision of high-risk : QUALIFIERS: Trimester: third trimester Qualified Code(s): O09.93 - Supervision of high risk , unspecified, third trimester COMMENT: PRR, , AYAZ 05/21/24, girl Jamey Wallace, Emmanuel (4) : QUALIFIERS: Weeks of gestation: 39 weeks Qualified Code(s): Z 3A.39 - 39 weeks gestation of COMMENT: GBS neg, declines NIPT carrier and afp screen, nl anatomy, nl GCT PLAN: Plan s/p PPD # 1 1. routine post delivery care 2. breast feeding- support given 3. rh positive 4. rubella immune 5. ok to dc to home today
== END 2024-05-16 11:20 | disposition home or self-care (01) | DRG 807 ==
PROVIDERS: Admitting Provider Advanced Practice Midwife; Referring Provider Advanced Practice Midwife; Visit Provider Obstetrics & Gynecology
DX: O80 Encounter for full-term uncomplicated delivery (principal); Z37.0 Single live birth; Z3A.39 39 weeks gestation of pregnancy
CPT/HCPCS: 59025; 59050; 85025; 86780; 86850; 86900; 86901

== ENCOUNTER → 2024-11-23 | Outpatient (CLI) | payer OTHER, SELFPAY | END | disposition home or self-care (01) | LOC: LABSPEC 14:12 | PROVIDERS: Referring Provider Obstetrics & Gynecology; Visit Provider Obstetrics & Gynecology | DX: N76.0 Acute vaginitis (principal) | CPT/HCPCS: 87070; 87205 ==